=== PATIENT | male | born 1960 | race Caucasian/White ===

== ENCOUNTER 2017-03-30 12:52 | Inpatient (IN) | payer SELFPAY ==
[~2017-03-30] VITALS: Ht 188 cm; Wt 140.0 kg
[~2017-03-30 12:52] MED LIST: LIDOCAINE HCL 1% PF 5 ML AMPULE OTHER ONE; MIDAZOLAM HCL 2 MG/2 ML VIAL IV ONE; ONDANSETRON HCL 4 MG/2 ML VIAL IV PUSH ONE; PROPOFOL 200 MG/20 ML AMP IV ONE
[2017-03-30 13:01] VITALS: BP 206/97; PULSE 93; RESP 20; TEMP 98.7; O2SAT 95
[2017-03-30] MEDS ORDERED: CEFEPIME INJ 1,000 MG in SODIUM CHLORIDE 0.9% INJ 100 ML IV ONE (13:30)
[2017-03-30] MEDS ORDERED: TETANUS/DIPHTHERIA TOXOID ADULT 0.5 ML VIAL IM ONE (13:30)
[2017-03-30 13:38] LABS: AUTOMATED NEUTROPHIL # 7.4 TH/MM3 (1.8-7.7); BASOPHIL # 0.1 TH/MM3 (0-0.2); BASOPHIL % 0.5 % (0.0-2.0); EOSINOPHIL # 0.2 TH/MM3 (0-0.4); EOSINOPHIL % 2.3 % (0.0-4.0); HEMO FLAGS DIFF FINAL; LYMPH % 14.2 % (9.0-44.0); LYMPHOCYTE # 1.4 TH/MM3 (1.0-4.8); MEAN CELL VOLUME 90.7 FL (80.0-100.0); MEAN CORPUSCULAR HEMOGLOBIN 31.1 PG (27.0-34.0); MEAN CORPUSCULAR HGB CONC 34.2 % (32.0-36.0); MONO % 5.9 % (0.0-8.0); NEUT % 77.1 % (16.0-70.0); PLATELET COUNT 205 TH/MM3 (150-450); RED BLOOD COUNT 5.07 MIL/MM3 (4.00-5.30); RED CELL DISTRIBUTION WIDTH 13.7 % (11.6-17.2); WHITE BLOOD COUNT 9.5 TH/MM3 (4.0-11.0)
[2017-03-30] MEDS ORDERED: LIDOCAINE HCL 1% 50 ML VIAL INFIL ONE (13:45)
--- NOTE | 2017-03-30 13:48 | RADRPT ---
EXAM DATE/TIME: 03/30/2017 14:21 [facility] COMPARISON: No previous studies available for comparison. INDICATIONS : Left hand pain. Fifth digit pain. Laceration to palm of hand near fifth MCPJ. MEDICAL HISTORY : None. SURGICAL HISTORY : None. ENCOUNTER: Initial ACUITY: 1 day PAIN SCORE: 3/10 LOCATION: Left hand. FINDINGS: 3 views of the left hand reveal an acute fracture involving the base of the proximal phalanx of the f ifth finger. The fracture is perpendicular to the long axis of the bone. There is ulnar deviation of the distal fracture fragment of 2 mm. No intra-articular extension is observed. Remaining bony struct ures are intact. Soft tissue swelling of the fifth finger observed. CONCLUSION: Acute fifth proximal phalangeal fracture as detailed above. Pedro Dixon Jr., MD on March 30, 2017 at 13:44 Board Certified Radiologist. This report was verified electronically.
[2017-03-30] MEDS ORDERED: METF1000 PO (13:53)
[2017-03-30 13:58] LABS: BICARBONATE 25.2 MEQ/L (21.0-32.0); MAGNESIUM 2.3 MG/DL (1.5-2.5); POTASSIUM 4.3 MEQ/L (3.5-5.1)
--- NOTE | 2017-03-30 14:29 | PD ---
HPI Chief Complaint: Laceration/Skin Injury Time Seen by Provider: 14:23 Travel History International Travel<30 days: No Contact w/Intl Traveler<30days: No Traveled to known affect area: No History of Present Illness HPI 56-year-old female that presents to the ED for evaluation of laceration to the left hand. Patient reports that today she had a trip and fall and landed on his left hand. Patient cut the MIP area of the palmar aspect. Patient cannot extend it without severe pain. Patient came here by ambulance was put into the edge. Patient was initially seen by Deirdre AMADOR. She moved the patient to a different medical area to better evaluate and likely for admission. Patient states that his pain is 3 out of 10. He denies any other injuries. He is unsure of his last tetanus booster. He denies any numbness, tilling, weakness. No head injury. No other injuries reported. Patient has difficulty with flexion and extension but able to keep the finger flexed but cannot extend actively. States having minimal bleeding. No blood thinner use. No allergies to medication. [facility] Social History Alcohol Use: No Tobacco Use: No Substance Use: No Allergies-Medications (Allergen,Severity, Reaction): Coded Allergies: No Known Allergies (Unverified , 03/30/17) Reported Meds & Prescriptions Reported Meds & Active Scripts Active Reported Metformin (Metformin HCl) 1,000 Mg Tab 1,000 Mg PO BIDPC Review of Systems Except as stated in HPI: all other systems reviewed are Neg Physical Exam Narrative GENERAL: SKIN: Warm and dry. HEAD: Atraumatic. Normocephalic. EYES: Pupils equal and round. No scleral icterus. No injection or drainage. ENT: No nasal bleeding or discharge. Mucous membranes pink and moist. Tongue is midline. No uvula deviation. NECK: Trachea midline. No JVD. CARDIOVASCULAR: Regular rate and rhythm. No murmurs, S3, S4. RESPIRATORY: No accessory muscle use. Clear to auscultation. Breath sounds equal bilaterally. GASTROINTESTINAL: Abdomen soft, non-tender, nondistended. Hepatic and splenic margins not palpable. MUSCULOSKELETAL: Extremities without clubbing, cyanosis, or edema. No obvious deformities. Patient has full range of motion of the upper extremities with exception of the left fifth digit. Patient has no lumbar, thoracic, cervical spine tenderness to palpation. Patient has a 2.5 cm laceration to the palmar aspect of the MIP. Follows most of the MIP area. Patient has some deformity to the proximal phalanx. Soft tissue swelling noted. No obvious tendon injury noted on examination but fatty tissue exposed. Laceration appears to be deep but somewhat hard to visualize secondary to fatty tissue. Patient cannot extend the digit without help. I am able to extend for him but he cannot keep it extended. Patient does have good capillary refill. Sensation appears to be intact. Patient keeps the finger flexed and can't flex it but not all the way. NEUROLOGICAL: Awake and alert. No obvious cranial nerve deficits. Motor grossly within normal limits. Five out of 5 muscle strength in the arms and legs. Normal speech. PSYCHIATRIC: Appropriate mood and affect; insight and judgment normal. Data Data Last Documented VS Vital Signs Date Time Temp Pulse Resp B/P (MAP) Pulse Ox O2 Delivery O2 Flow Rate FiO2 03/30/17 15:01 92 18 03/30/17 15:01 146/73 (97) 99 Room Air 03/30/17 13:01 98.7 Orders Orders Tetanus/Diphtheria Tox Adult (Tetanus/Di (03/30/17 13:30) Hand, Complete ([id number]) (03/30/17 ) Complete Blood Count With Diff (03/30/17 13:24) Basic Metabolic Panel (Bmp) (03/30/17 13:24) Magnesium (Mg) (03/30/17 13:24) Cefepime Inj (Maxipime Inj) (03/30/17 13:30) Wound Care (03/30/17 13:31) Lidocaine 1% Inj (50 Ml) (Xylocaine 1% I (03/30/17 13:45) Electrocardiogram (03/30/17 14:23) Prothrombin Time / Inr (Pt) (03/30/17 14:23) Act Partial Throm Time (Ptt) (03/30/17 14:23) Chest, Single Ap (03/30/17 14:23) Admit To Inpatient (03/30/17 ) Vital Signs (Adult) Q4H (03/30/17 14:36) Activity Oob With Assistance (03/30/17 14:36) Sodium Chlor 0.9% 1000 Ml Inj (Ns 1000 M (03/30/17 14:36) Sodium Chloride 0.9% Flush (Ns Flush) (03/30/17 14:45) Sodium Chloride 0.9% Flush (Ns Flush) (03/30/17 21:00) Acetaminophen (Tylenol) (03/30/17 14:45) Ondansetron Inj (Zofran Inj) (03/30/17 14:45) Basic Metabolic Panel (Bmp) (03/31/17 06:00) Complete Blood Count With Diff (03/31/17 06:00) Scd Bilateral/Knee High CHATA.BID (03/30/17 14:36) Naloxone Inj (Narcan Inj) (03/30/17 14:45) Magnesium Hydroxide Liq (Milk Of Magnesi (03/30/17 14:45) Sennosides (Senokot) (03/30/17 14:45) Bisacodyl Supp (Dulcolax Supp) (03/30/17 14:45) Lactulose Liq (Lactulose Liq) (03/30/17 14:45) Inpatient Certification (03/30/17 ) Diet Npo Except Meds (03/30/17 Lunch) Oxycodone-Acetamin 7.5-325 Mg (Percocet (03/30/17 14:45) Cefazolin 2 Gm Premix (Ancef 2 Gm Premix (03/30/17 15:00) Hydromorphone Pf Inj (Dilaudid Pf Inj) (03/30/17 14:45) Admit Order (Ed Use Only) (03/30/17 15:02) Labs Laboratory Tests Test 03/30/17 13:31 03/30/17 14:33 White Blood Count 9.5 TH/MM3 Red Blood Count 5.07 MIL/MM3 Hemoglobin 15.7 GM/DL Hematocrit 46.0 % Mean Corpuscular Volume 90.7 FL Mean Corpuscular Hemoglobin 31.1 PG Mean Corpuscular Hemoglobin Concent 34.2 % Red Cell Distribution Width 13.7 % Platelet Count 205 TH/MM3 Mean Platelet Volume 8.3 FL Neutrophils (%) (Auto) 77.1 % Lymphocytes (%) (Auto) 14.2 % Monocytes (%) (Auto) 5.9 % Eosinophils (%) (Auto) 2.3 % Basophils (%) (Auto) 0.5 % Neutrophils # (Auto) 7.4 TH/MM3 Lymphocytes # (Auto) 1.4 TH/MM3 Monocytes # (Auto) 0.6 TH/MM3 Eosinophils # (Auto) 0.2 TH/MM3 Basophils # (Auto) 0.1 TH/MM3 CBC Comment DIFF FINAL Differential Comment Blood Urea Nitrogen 20 MG/DL Creatinine 1.16 MG/DL Random Glucose 126 MG/DL Calcium Level 9.4 MG/DL Magnesium Level 2.3 MG/DL Sodium Level 139 MEQ/L Potassium Level 4.3 MEQ/L Chloride Level 107 MEQ/L Carbon Dioxide Level 25.2 MEQ/L Anion Gap 7 MEQ/L Estimat Glomerular Filtration Rate 48 ML/MIN Prothrombin Time 10.5 SEC Prothromb Time International Ratio 1.0 RATIO Activated Partial Thromboplast Time 26.4 SEC MDM Medical Decision Making Medical Screen Exam Complete: Yes Emergency Medical Condition: Yes Medical Record Reviewed: Yes Interpretation(s) Last Impressions Hand X-Ray 03/30/17 0000 Signed Impressions: Service Date/Time: Thursday, March 30, 2017 14:21 - CONCLUSION: Acute fifth proximal phalangeal fracture as detailed above. Pedro Dixon Jr., MD CBC & BMP Diagram 03/30/17 13:31 Calcium Level 9.4, Magnesium Level 2.3 Differential Diagnosis Laceration versus open fracture versus fracture Narrative Course 56-year-old female that presents to the ED for evaluation of left hand laceration. Patient was properly examined and was found to have signs and symptoms concerning for open fracture. Labs and imaging were ordered. Labs and imaging show open fracture. Case discussed with Dr. Link over the phone who recommends that the patient be admitted to medicine, nothing by mouth for surgery likely today. Patient was told this and agrees with plan. Labs were ordered. A call was placed to [facility]. Dr Mccartney agreed to admission. Diagnosis Primary Impression: Proximal phalanx fracture of finger Qualified Codes: S62.617B - Displaced fracture of proximal phalanx of left little finger, initial encounter for open fracture Admitting Information Admitting Physician Requests: Observation Darrell Doyle Mar 30, 2017 14:29
[2017-03-30] MEDS ORDERED: ACETAMINOPHEN 325 MG TAB PO PRN (14:45)
[2017-03-30] MEDS ORDERED: LACTULOSE SYRUP 20 GM/30 ML CUP PO PRN (14:45)
[2017-03-30] MEDS ORDERED: SODIUM CHLORIDE 0.9% FLUSH 10 ML FLUSH IV FLUSH PRN (14:45)
[2017-03-30] MEDS ORDERED: BISACODYL 10 MG SUPP RECTAL PRN (14:45)
[2017-03-30] MEDS ORDERED: NALOXONE HCL 0.4 MG/ML AMP IV PUSH PRN (14:45)
[2017-03-30] MEDS ORDERED: MAGNESIUM HYDROXIDE SUSP 30 ML CUP PO PRN (14:45)
[2017-03-30] MEDS ORDERED: SENNOSIDES 8.6 MG TAB PO PRN (14:45)
[2017-03-30] MEDS ORDERED: ONDANSETRON HCL 4 MG/2 ML VIAL IVP PRN (14:45)
--- NOTE | 2017-03-30 14:48 | HHI.HP ---
[facility] Service [facility] Primary Care Physician No Primary Care Physician Admission Diagnosis Diagnoses: Chief Complaint: Left hand injury Travel History International Travel<30 Days: No Contact w/Intl Traveler <30 Da: No Traveled to Known Affected Are: No History of Present Illness Mr. Garrido is a 56-year-old male with a history of diabetes who presented to the emergency department on 03/30/2017 due to trip and fall on his left hand causing laceration to the left hand. He is unable to extend his left hand without severe pain. Left hand x-ray shows acute fifth proximal phalangeal fracture. Hand surgery was contacted by ED. Patient is likely to undergo surgical intervention today. Patient denies any chest pain, shortness of breath , cough, fever, chills. He also denies any changes in bowel or bladder habits. Review of Systems Except as stated in HPI: all other systems reviewed are Neg Past Family Social History Past Medical History Diabetes mellitus Past Surgical History Cholecystectomy Tonsillectomy Reported Medications Metformin Allergies: Coded Allergies: No Known Allergies (Unverified , 03/30/17) Family History No family history of heart disease, Alzheimer's or Parkinson's. Social History Patient denies using tobacco. Drinks occasionally. Denies using any illicit drugs. Physical Exam Vital Signs Vital Signs Date Time Temp Pulse Resp B/P (MAP) Pulse Ox O2 Delivery O2 Flow Rate FiO2 03/30/17 13:01 98.7 93 20 206/97 (133) 95 Room Air Physical Exam GENERAL: This is a well-nourished, well-developed patient, in no apparent distress. SKIN: No rashes, ecchymoses or lesions. Warm and dry. HEAD: Atraumatic. Normocephalic. No temporal or scalp tenderness. EYES: Pupils equal round and reactive. No injection or drainage. ENT: Nose without bleeding, purulent drainage or septal hematoma. Airway patent. NECK: Trachea midline. No lymphadenopathy. Supple, nontender, no meningeal signs. CARDIOVASCULAR: Regular rate and rhythm without murmurs, gallops, or rubs. No JVD. RESPIRATORY: Clear to auscultation. Breath sounds equal bilaterally. No wheezes , rales, or rhonchi. GASTROINTESTINAL: Abdomen soft, non-tender, nondistended. No guarding. MUSCULOSKELETAL: Extremities without clubbing, cyanosis, or edema. Left hand wrapped in dressing. Able to move all fingers. There is a open laceration between 4th and fifth left fingers. NEUROLOGICAL: Awake and alert. Cranial nerves II through XII intact. No focal neurological deficits. Normal speech. Laboratory Laboratory Tests Test 03/30/17 13:31 White Blood Count 9.5 Red Blood Count 5.07 Hemoglobin 15.7 Hematocrit 46.0 Mean Corpuscular Volume 90.7 Mean Corpuscular Hemoglobin 31.1 Mean Corpuscular Hemoglobin Concent 34.2 Red Cell Distribution Width 13.7 Platelet Count 205 Mean Platelet Volume 8.3 Neutrophils (%) (Auto) 77.1 Lymphocytes (%) (Auto) 14.2 Monocytes (%) (Auto) 5.9 Eosinophils (%) (Auto) 2.3 Basophils (%) (Auto) 0.5 Neutrophils # (Auto) 7.4 Lymphocytes # (Auto) 1.4 Monocytes # (Auto) 0.6 Eosinophils # (Auto) 0.2 Basophils # (Auto) 0.1 CBC Comment DIFF FINAL Differential Comment Blood Urea Nitrogen 20 Creatinine 1.16 Random Glucose 126 Calcium Level 9.4 Magnesium Level 2.3 Sodium Level 139 Potassium Level 4.3 Chloride Level 107 Carbon Dioxide Level 25.2 Anion Gap 7 Estimat Glomerular Filtration Rate 48 Result Diagram: 03/30/17 1331 03/30/17 1331 Imaging Last Impressions Hand X-Ray 03/30/17 0000 Signed Impressions: Service Date/Time: Thursday, March 30, 2017 14:21 - CONCLUSION: Acute fifth proximal phalangeal fracture as detailed above. MD Aric Walker Jr.i VTE Risk Assessment Caprini VTE Risk Assessment: No/Low Risk (score <= 1) Caprini Risk Assessment Model Point Value = 1 Point Value = 2 Point Value = 3 Point Value = 5 Age 41-60 Minor surgery BMI > 25 kg/m2 Swollen legs Varicose veins or History of unexplained or recurrent spontaneous Oral contraceptives or hormone replacement Sepsis (< 1 month) Serious lung disease, including pneumonia (< 1 month) Abnormal pulmonary function Acute myocardial infarction Congestive heart failure (< 1 month) History of inflammatory bowel disease Medical patient at bed rest Age 61-74 Arthroscopic surgery Major open surgery (> 45 min) Laparoscopic surgery (> 45 min) Malignancy Confined to bed (> 72 hours) Immobilizing plaster cast Central venous access Age >= 75 History of VTE Family history of VTE Factor V Leiden Prothrombin [id number] Lupus anticoagulant Anticardiolipin antibodies Elevated serum homocysteine Heparin-induced thrombocytopenia Other congenital or acquired thrombophilia Stroke (< 1 month) Elective arthroplasty Hip, pelvis, or leg fracture Acute spinal cord injury (< 1 month) Prophylaxis Regimen Total Risk Factor Score Risk Level Prophylaxis Regimen 0-1 Low Early ambulation 2 Moderate Order ONE of the following: *Sequential Compression Device (SCD) *Heparin 5000 units SQ BID 3-4 Higher Order ONE of the following medications: *Heparin 5000 units SQ TID *Enoxaparin/Lovenox 40 mg SQ daily (WT < 150 kg, CrCl > 30 mL/min) *Enoxaparin/Lovenox 30 mg SQ daily (WT < 150 kg, CrCl > 10-29 mL/min) *Enoxaparin/Lovenox 30 mg SQ BID (WT < 150 kg, CrCl > 30 mL/min) AND/OR *Sequential Compression Device (SCD) 5 or more Highest Order ONE of the following medications: *Heparin 5000 units SQ TID (Preferred with Epidurals) *Enoxaparin/Lovenox 40 mg SQ daily (WT < 150 kg, CrCl > 30 mL/min) *Enoxaparin/Lovenox 30 mg SQ daily (WT < 150 kg, CrCl > 10-29 mL/min) *Enoxaparin/Lovenox 30 mg SQ BID (WT < 150 kg, CrCl > 30 mL/min) AND *Sequential Compression Device (SCD) Assessment and Plan Problem List: (1) Proximal phalanx fracture of finger ICD Code: S62.619A - Displaced fracture of proximal phalanx of unspecified finger, initial encounter for closed fracture Assessment and Plan Mr. Garrido is a pleasant 56 year old male with a history of Diabetes who presents to the ED after he tripped and fell on his left arm sustaining a left fifth proximal phalanx fracture. Hand surgery evaluated patient and took patient to surgery this afternoon. - Acute proximal phalanx fracture of left fifth finger. - Hand surgery already evaluated patient. Surgery this afternoon. Currently NPO. - Acetaminophen, Percocet and Dilaudid PRN for pain. - Start Cefazolin 2g Q8hrs. Will consider Keflex PO on discharge. - Diabetes mellitus - Per patient, his last HbA1c was around 5 apparently. His PCP is in [place]. - Patient takes Metformin which will hold for now. Glucose on BMP 126. - If needed, we will consider sliding scale insulin. - Probable CKD stage 3 - Creatinine is around 1.16, eGFR 48. - Discussed with patient that he needs to follow up with his PCP to see if this is MIGUEL or CKD. - Avoid nephrotoxins. Metformin should not be used if eGFR < 30 and use with caution if eGFR 30-44. Full code. Ambulation. Discharge plan: If okay with hand surgery, patient can potentially be discharge 1-2 days with oral abx. Physician Certification 2 Midnight Certification Type: Admission for Inpatient Services Order for Inpatient Services The services are ordered in accordance with Medicare regulations or non- Medicare payer requirements, as applicable. In the case of services not specified as inpatient-only, they are appropriately provided as inpatient services in accordance with the 2-midnight benchmark. Estimated LOS (days): 2 days is the estimated time the patient will need to remain in the hospital, assuming treatment plan goals are met and no additional complications. Post-Hospital Plan: Home Problem Qualifiers (1) Proximal phalanx fracture of finger: Qualified Codes: S62.617B - Displaced fracture of proximal phalanx of left little finger, initial encounter for open fracture [place] Mccartney DO Mar 30, 2017 14:48
[2017-03-30] MEDS: SODIUM CHLOR 0.9% 1000 ML INJ 1,000 ML IV SCH ×2 (14:59→20:17)
[2017-03-30] MEDS: ceFAZolin 2 GM PREMIX 50 ML IV SCH ×2 (15:00→22:01)
[2017-03-30 15:01] VITALS: BP 146/73; PULSE 94; RESP 18; O2SAT 99
--- NOTE | 2017-03-30 15:11 | RADRPT ---
EXAM DATE/TIME: 03/30/2017 14:54 [facility] COMPARISON: No previous studies available for comparison. INDICATIONS : Chest pain. MEDICAL HISTORY : None. SURGICAL HISTORY : None. ENCOUNTER: Initial ACUITY: 1 day PAIN SCORE: 06/18 LOCATION: Bilateral chest FINDINGS: A single view of the chest demonstrates the lungs to be symmetrically aerated without evidence of mas s, infiltrate or effusion. The cardiomediastinal contours are unremarkable. Osseous structures are intact. CONCLUSION: No acute disease. Pedro Dixon Jr., MD on March 30, 2017 at 15:09 Board Certified Radiologist. This report was verified electronically.
[2017-03-30 15:24] LABS: APTT (PATIENT) 26.4 SEC (24.3-30.1); PROTHROMBIN TIME - PATIENT 10.5 SEC (9.8-11.6)
[2017-03-30] MEDS ORDERED: GLUCAGON 1 MG/ML VIAL OTHER PRN (15:30)
[2017-03-30] MEDS ORDERED: DEXTROSE 50% IN WATER 50 ML VIAL(D50) IV PUSH PRN (15:30)
[2017-03-30] MEDS ORDERED: INSULIN ASPART SUPPLEMENTAL SCALE SQ SCH (17:00)
[2017-03-30] MEDS ORDERED: ACETAMINOPHEN 1000 MG/100 ML 100 ML IV ONE (17:10)
[2017-03-30] MEDS ORDERED: BACITRACIN TOP OINT 15 GM TUBE ONE (18:14)
[2017-03-30] MEDS ORDERED: NEOMYCIN/POLYMYXIN 1 ML G.U. IRRIGANT IRRIGATION ONE (18:16)
[2017-03-30] MEDS ORDERED: BUPIVACAINE HCL PF 0.5% 10 ML VIAL INFIL ONE (19:24)
[2017-03-30] MEDS ORDERED: LIDOCAINE HCL 2% 50 ML VIAL INFIL ONE (19:31)
--- NOTE | 2017-03-30 19:40 | PD.OP ---
Operative Report Preoperative Diagnosis: (1) Open displaced fracture of proximal phalanx of left little finger Postoperative Diagnosis: (1) Open displaced fracture of proximal phalanx of left little finger Procedure: Debridement, open reduction and internal fixation proximal phalanx, repair of laceration left little finger Anesthesia: general Surgeon: Michael Link Weight Control Engineer(s): emelia Operation and Findings: oblique laceration over the volar aspect of the proximal phalanx region measuring 5 cms oblique displaced epibasal fracture proximal phalanx left little finger Michael Link MD Mar 30, 2017 19:40
[2017-03-30] MEDS ORDERED: DO NOT ADM ANY ANTICOAGULANT DRUGS PRN (20:00)
--- NOTE | 2017-03-30 20:16 | MB ---
cc: JOSE CERVANTES MD DATE OF CONSULTATION: 03/30/2017. REASON FOR CONSULTATION: Laceration and fracture left little finger. HISTORY OF PRESENT ILLNESS: The patient is 56-year-old right hand dominant male with history of diabetes who presented to the emergency department with complaints of injury to the left hand. The patient complains of laceration over the left little finger. He also complains of deformity of the left little finger. The patient also complains of worsening symptoms with range of motion. He has very limited range of motion. Denies any tingling or numbness. PAST MEDICAL HISTORY: His past medical history is significant for diabetes. PAST SURGICAL HISTORY: Surgical history is noted and is not significant. PHYSICAL EXAMINATION: The patient is alert and oriented times three. Examination of left upper extremity reveals an oblique laceration involving the volar aspect of the proximal phalanx region of the hand and little finger measuring about 5 cm and it extends from the ulnar aspect of the palm distal to the distal palmar crease across the proximal phalanx region into the fourth webspace. There is evidence of exposed tendon and soft tissues noted within the laceration. The patient is able to actively flex the DIP joint. He has intact capillary refill. He has intact distal sensation. Range of motion of the little finger is limited and painful. IMAGING STUDIES: X-rays of the left hand show an oblique displaced fracture involving the AP basal region of the proximal phalanx left little finger. ASSESSMENT: 56-year-old male with open displaced fracture proximal phalanx left little finger. PLAN: Take the patient emergently for open reduction internal fixation proximal phalanx left little finger. The patient has been explained the risks and benefits of the procedure. He is consented for the same. Jose Cervantes MD [place] /7:46 PM /8:11 PM
[2017-03-30 20:26] VITALS: BP 168/90; PULSE 86; RESP 17; TEMP 98.5; O2SAT 98
--- NOTE | 2017-03-30 20:26 | MP ---
cc: JOSE CERVANTES MD DATE OF SURGERY: 03/30/2017. PREOPERATIVE DIAGNOSIS: Open displaced proximal phalanx fracture left little finger. POSTOPERATIVE DIAGNOSIS: Open displaced proximal phalanx fracture left little finger. OPERATIVE PROCEDURE PERFORMED: 1. Exploration, debridement, open reduction internal fixation proximal phalanx left little finger. 2. Repair of laceration left little finger. SURGEON: Jose Cervantes M.D. ANESTHESIA: General. ESTIMATED BLOOD LOSS: Minimal. TOURNIQUET TIME: 77 minutes at 250 mmHg. IMPLANTS USED: 0.045 K-wires x2. DISPOSITION: The patient was recovered sent to the recovery room stable condition. INDICATIONS FOR THE PROCEDURE: The patient is a 56-year-old right hand dominant male with history of diabetes who presented to the emergency department with complaints of a trip and fall over the left hand. The patient complained of laceration and deformity of the left little finger. On examination, he had an oblique laceration over the volar aspect of the proximal phalanx region extending from the palm across the fourth webspace measuring about 5 cm. He also had deformity and exposed soft tissues and tendon over the volar aspect of the little finger. Range of motion was limited and painful. He had intact capillary refill. He had intact distal sensation. X-rays showed displaced oblique basal fracture involving the proximal phalanx left little finger. The patient was consented for closed / open reduction internal fixation of proximal phalanx left little finger. The patient was explained the risks and benefits of the procedure. DESCRIPTION OF THE PROCEDURE IN DETAIL: The patient was brought to the operating room and under general anesthesia the left upper extremity was thoroughly prepped and draped. Thorough wash of the wound was carried out. The limb was exsanguinated using an Esmarch tourniquet. The tourniquet was inflated to 250 mmHg. Intraoperative findings included an oblique laceration extending from the ulnar aspect of the palm distal to the distal palmar crease across the palm into the fourth webspace measuring about 5 cm with exposed distal fragment of the proximal phalanx within the bone. There was evidence of displacement of the flexor tendons with interposition of the flexor tendons within the fracture site. The digital nerve was exposed but intact. The fracture was an oblique AP basal fracture. Thorough wash was given using normal saline mixed with irrigant. Fixation of the fracture was carried out initially by placing 0.045 K-wires from the fracture site into the proximal fragment in a retrograde fashion exiting from the base of the proximal phalanx avoiding the MP joint. The fracture was reduced under vision and the K-wires were then drilled in an antegrade fashion across the fracture into the distal fragment. Multiple C-arm views were obtained to confirm the fracture reduction and K-wire placement. The fracture was well reduced with K-wires well placed. Thorough wash of the wound was carried out. The K-wires were then bent, cut and protected with Velasquez balls. Skin incision was made around the K-wires to release the tension. The laceration was then approximated using 4-0 nylon and a 4-0 chromic catgut in a horizontal mattress interrupted fashion. Xeroform and bacitracin dressing applied. 5 cc of local anesthesia containing 0.6 Marcaine and 2% lidocaine mixture was injected across the laceration site. A bulky hand dressing was applied, which was held in place by Sof-Rol and a volar short-arm splint was applied. The tourniquet was deflated. Total tourniquet time was 77 minutes. The patient had good distal circulation on release of the tourniquet. He was recovered sent to the recovery room in stable condition. PLAN: The plan will be to discharge the patient home on p.o. antibiotics tomorrow along with pain medication. Jose Cervantes MD [place] /7:41 PM /8:15 PM
[2017-03-30] MEDS: SODIUM CHLORIDE 0.9% FLUSH 10 ML FLUSH IV FLUSH SCH (21:48)
[2017-03-30] MEDS: oxyCODONE/ACETAMINOPHEN 7.5 MG/325 MG TAB PO PRN (22:00)
[2017-03-31 00:45] VITALS: BP 159/87; PULSE 93; RESP 17; TEMP 98.1; O2SAT 95
[2017-03-31] MEDS: HYDROmorphone HCL PF 2 MG/ML VIAL IV PUSH PRN ×3 (01:03→17:55)
[2017-03-31 04:45] VITALS: BP 147/88; PULSE 105; RESP 18; TEMP 98.5; O2SAT 93
[2017-03-31] MEDS: ceFAZolin 2 GM PREMIX 50 ML IV SCH ×2 (05:35→15:18)
[2017-03-31] MEDS: oxyCODONE/ACETAMINOPHEN 7.5 MG/325 MG TAB PO PRN ×2 (06:05→17:28)
[2017-03-31 07:03] LABS: AUTOMATED NEUTROPHIL # 7.3 TH/MM3 (1.8-7.7); BASOPHIL % 0.4 % (0.0-2.0); EOSINOPHIL # 0.2 TH/MM3 (0-0.4); EOSINOPHIL % 2.2 % (0.0-4.0); HEMATOCRIT 44.4 % (39.0-51.0); HEMO FLAGS DIFF FINAL; LYMPH % 14.8 % (9.0-44.0); LYMPHOCYTE # 1.4 TH/MM3 (1.0-4.8); MEAN CORPUSCULAR HEMOGLOBIN 30.6 PG (27.0-34.0); MEAN CORPUSCULAR HGB CONC 33.2 % (32.0-36.0); MONO % 7.6 % (0.0-8.0); PLATELET COUNT 198 TH/MM3 (150-450); RED BLOOD COUNT 4.82 MIL/MM3 (4.50-5.90); RED CELL DISTRIBUTION WIDTH 13.6 % (11.6-17.2); WHITE BLOOD COUNT 9.8 TH/MM3 (4.0-11.0)
[2017-03-31 07:22] LABS: BICARBONATE 24.7 MEQ/L (21.0-32.0); POTASSIUM 4.1 MEQ/L (3.5-5.1)
[2017-03-31 08:00] VITALS: BP 185/96; PULSE 100; RESP 18; TEMP 98.1; O2SAT 92
--- NOTE | 2017-03-31 08:22 | HHI.DCPOC ---
Discharge Care Plan Diagnosis: (1) Proximal phalanx fracture of finger Your Health Problems Are: Difficulty with ADL Exercise Tolerance Goals to Promote Your Health * To prevent worsening of your condition and complications * To maintain your health at the optimal level Directions to Meet Your Goals Take your medications as prescribed Follow your dietary instruction Follow activity as directed Keep your appointments as scheduled Take your immunizations and boosters as scheduled If your symptoms worsen call your PCP, if no PCP go to Urgent Care Center or Emergency Room Smoking is Dangerous to Your Health. Avoid second hand smoke Call the 24-hour hour crisis hotline for domestic abuse at [facility] Asencio MD Mar 31, 2017 08:22
[2017-03-31] MEDS ORDERED: OXYC1TAB35 PO (08:24)
[2017-03-31] MEDS ORDERED: cloNIDine HCL 0.1 MG TAB PO PRN (08:30)
[2017-03-31] MEDS ORDERED: GLUCAGON 1 MG/ML VIAL OTHER PRN (08:30)
[2017-03-31] MEDS ORDERED: ENALAPRILAT 1.25 MG/ML VIAL IV PUSH PRN (08:30)
[2017-03-31] MEDS ORDERED: DEXTROSE 50% IN WATER 50 ML VIAL(D50) IV PUSH PRN (08:30)
[2017-03-31] MEDS: SODIUM CHLORIDE 0.9% FLUSH 10 ML FLUSH IV FLUSH SCH (09:00)
--- NOTE | 2017-03-31 10:44 | EKG ---
Date Performed: 03/30/2017 Time Performed: 14:34:11 PTAGE: 56 years EKG: Sinus rhythm NONSPECIFIC T-WAVE ABNORMALITY BORDERLINE ECG NO PREVIOUS TRACING DOCTOR: Jean-Pierre Wong Interpretating Date/Time 03/31/2017 10:39:12
[2017-03-31] MEDS: INSULIN ASPART SUPPLEMENTAL SCALE SQ SCH ×2 (11:22→17:00)
[2017-03-31 12:00] VITALS: BP 178/96; PULSE 94; RESP 18; TEMP 98.6; O2SAT 92
--- NOTE | 2017-03-31 13:45 | HHI.PR ---
Subjective Remarks Follow-up hand injury. Patient doing well discussed with hand surgery okay for discharge on Keflex and narcotic. Patient states he has whitecoat hypertension. Discussed with RN Objective Vitals Vital Signs Date Time Temp Pulse Resp B/P (MAP) Pulse Ox O2 Delivery O2 Flow Rate FiO2 03/31/17 12:00 98.6 94 18 178/96 (123) 92 03/31/17 08:00 98.1 100 18 185/96 (125) 92 03/31/17 04:45 98.5 105 18 147/88 (107) 93 03/31/17 00:45 98.1 93 17 159/87 (111) 95 03/30/17 20:26 98.5 86 17 168/90 (116) 98 03/30/17 20:22 Nasal Cannula 2.00 03/30/17 20:00 92 22 159/79 (105) 95 Nasal Cannula 2 03/30/17 19:45 95 24 162/78 (106) 96 Nasal Cannula 2 03/30/17 19:40 98.0 98 23 164/81 (108) 96 Nasal Cannula 4 03/30/17 16:39 03/30/17 15:01 92 18 03/30/17 15:01 94 18 146/73 (97) 99 Room Air I/O 03/30/17 03/30/17 03/30/17 03/31/17 03/31/17 03/31/17 07:00 15:00 23:00 07:00 15:00 23:00 Intake Total 430 ml 1477 ml Output Total 800 ml Balance -370 ml 1477 ml Intake Oral 380 ml 480 ml IV Total 50 ml 997 ml Output Urine Total 800 ml # Voids 1 # Bowel Movements 0 0 Result Diagram: 03/31/17 0515 03/31/17 0545 Imaging Last Impressions Chest X-Ray 03/30/17 1423 Signed Impressions: Service Date/Time: Thursday, March 30, 2017 14:54 - CONCLUSION: No acute disease. Pedro Dixon Jr., MD Hand X-Ray 03/30/17 0000 Signed Impressions: Service Date/Time: Thursday, March 30, 2017 14:21 - CONCLUSION: Acute fifth proximal phalangeal fracture as detailed above. Pedro Dixon Jr., MD Objective Remarks GENERAL: This is a well-nourished, well-developed patient, in no apparent distress. SKIN: No rashes, ecchymoses or lesions. Warm and dry. HEAD: Atraumatic. Normocephalic. No temporal or scalp tenderness. EYES: Pupils equal round and reactive. No injection or drainage. ENT: Nose without bleeding, purulent drainage or septal hematoma. Airway patent. NECK: Trachea midline. No lymphadenopathy. Supple, nontender, no meningeal signs. CARDIOVASCULAR: Regular rate and rhythm without murmurs, gallops, or rubs. No JVD. RESPIRATORY: Clear to auscultation. Breath sounds equal bilaterally. No wheezes , rales, or rhonchi. GASTROINTESTINAL: Abdomen soft, non-tender, nondistended. No guarding. MUSCULOSKELETAL: Extremities without clubbing, cyanosis, or edema. Left hand wrapped in dressing. Able to move all fingers. NEUROLOGICAL: Awake and alert. Cranial nerves II through XII intact. No focal neurological deficits. Normal speech. Procedures ORIF of left fifth finger fracture and repair of laceration A/P Problem List: (1) Proximal phalanx fracture of finger ICD Code: S62.619A - Displaced fracture of proximal phalanx of unspecified finger, initial encounter for closed fracture Assessment and Plan Mr. Garrido is a pleasant 56 year old male with a history of Diabetes who presents to the ED after he tripped and fell on his left arm sustaining a left fifth proximal phalanx fracture. Hand surgery evaluated patient and took patient to surgery this afternoon. - Acute proximal phalanx fracture of left fifth finger. - Stable status post repair. - Acetaminophen, Percocet and Dilaudid PRN for pain. Counseled regarding narcotics - Start Cefazolin 2g Q8hrs. Keflex PO on discharge. - Stable for discharge per hand surgery - Diabetes mellitus - Per patient, his last HbA1c was around 5 apparently. His PCP is in [place]. - Patient takes Metformin which will hold for now. Glucose on BMP 126. - If needed, we will consider sliding scale insulin. - Probable CKD stage 3 - Creatinine is around 1.16, eGFR 48. - Discussed with patient that he needs to follow up with his PCP to see if this is MIGUEL or CKD. - Avoid nephrotoxins. Metformin should not be used if eGFR < 30 and use with caution if eGFR 30-44. Whitecoat hypertension. Outpatient follow-up Full code. Ambulation. Discharge Planning Discharge patient to home Condition on discharge: Improved Regular Diet as tolerated Ad Faby activity nonweightbearing left upper extremity Rx written: Percocet and Keflex Follow-up with primary care physician and hand surgery in 1 week Problem Qualifiers (1) Proximal phalanx fracture of finger: Qualified Codes: S62.617B - Displaced fracture of proximal phalanx of left little finger, initial encounter for open fracture [facility] Asencio MD Mar 31, 2017 13:45
[2017-03-31] MEDS ORDERED: CEPH-460 PO (15:04)
== END 2017-03-31 18:17 | disposition home or self-care (01) | DRG 514 ==
LOC: NEPC 12:52 → NEDA 15:05 → OBSVTOIN 16:09 → EDSEX 16:09 → N06B 20:20
PROVIDERS: ADMIT Internal Medicine; ATTEND Internal Medicine
PROC: 0HQGXZZ Repair Left Hand Skin, External Approach (ICD-10-PCS; 2017-03-30)
PROC: 0PSV04Z Reposition Left Finger Phalanx with Internal Fixation Device, Open Approach (ICD-10-PCS; principal; 2017-03-30 17:33)
DX: S62.617B Displaced fracture of proximal phalanx of left little finger, initial encounter for open fracture (principal); E11.22 Type 2 diabetes mellitus with diabetic chronic kidney disease; N18.3 Chronic kidney disease, stage 3 (moderate); S61.217A Laceration without foreign body of left little finger without damage to nail, initial encounter; R03.0 Elevated blood-pressure reading, without diagnosis of hypertension; W01.0XXA Fall on same level from slipping, tripping and stumbling without subsequent striking against object, initial encounter; Z79.84 Long term (current) use of oral hypoglycemic drugs
CPT/HCPCS: 71010; 73130; 76000; 80048; 82948; 83735; 85025; 85610; 85730; 90714; 93005; J0131; J0690; J0692; J1170; J2250; J2405; J3010; J7030